=== PATIENT | male | born 1960 | race Caucasian/White ===

== ENCOUNTER → 2022-01-08 10:51 | Outpatient (BNVA) | payer MEDICARE, SELFPAY | PROVIDERS: PCP Family Medicine; Visit Provider Internal Medicine Cardiovascular Disease | DX: I44.1 Atrioventricular block, second degree (principal); R00.0 Tachycardia, unspecified | CPT/HCPCS: 93270 ==

== ENCOUNTER 2024-05-27 22:52 | Emergency (ER) | payer MEDICARE, SELFPAY ==
[2024-05-27 22:53] VITALS: BP 138/80; PULSE 121; RESP 20; TEMP 36.6; O2SAT 96
[2024-05-27 23:01] VITALS: BP 138/80; PULSE 123; RESP 20; O2SAT 95
--- NOTE | 2024-05-27 23:03 | XRR_ITS ---
PROCEDURE INFORMATION: Exam: XR Chest Exam date and time: 05/27/2024 11:05 PM Age: 63 years old Clinical indication: Injury or trauma; Blunt trauma (contusions or hematomas); Patient HX: EMS arrival for syncopal episode with fall; Additional info: Syncope fall TECHNIQUE: Imaging protocol: Radiologic exam of the chest. Views: 1 view. COMPARISON: No relevant prior studies available. FINDINGS: Lungs: Unremarkable. No consolidation. Pleural spaces: Unremarkable. No pleural effusion. No pneumothorax. Heart/Mediastinum: Unremarkable. No cardiomegaly. Bones/joints: Unremarkable. XR/XR chest 1V portable [id number] IMPRESSION: No acute findings.
--- NOTE | 2024-05-27 23:03 | XRR_ITS ---
PROCEDURE INFORMATION: Exam: XR Left Hip Exam date and time: 05/27/2024 11:05 PM Age: 63 years old Clinical indication: Injury or trauma; Blunt trauma (contusions or hematomas); Patient HX: EMS arrival for fall at home. C/O left hip pain; Additional info: Fallpain TECHNIQUE: Imaging protocol: Radiologic exam of the left hip. Views: 2 or 3 views hip with pelvis when performed. COMPARISON: No relevant prior studies available. FINDINGS: Bones/joints: Acute comminuted intertrochanteric left femur fracture. No dislocation. The pelvic bones appear grossly intact. Moderately advanced degenerative changes of bilateral hips. Degenerative changes of the lower lumbar spine. Soft tissues: Unremarkable. XR/XR hip LT 2-3V wo/w pel* [id number] IMPRESSION: Acute comminuted intertrochanteric left femur fracture.
--- NOTE | 2024-05-27 23:03 | ECG_ITS ---
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 Measurements Intervals [place] Rate: 121 P: 0 LA: 0 QRS: -50 QRSD: 100 T: 72 QT: 309 QTc: 440 Interpretive Statements ATRIAL TACHYCARDIA WITH RAPID VENTRICULAR RESPONSE PATTERN CONSISTENT WITH PULMONARY DISEASE LEFT ANTERIOR FASCICULAR BLOCK [QRS AXIS <= -45, QR IN I, RS IN II] Compared to ECG 12/27/2014 22:18:59 Left anterior fascicular block now present Sinus rhythm no longer present First degree AV block no longer present Left-axis deviation no longer present Electronically Signed On 05-28-2024 18:45:14 CDT by Heraclio Phillips M.D. [id number]
--- NOTE | 2024-05-27 23:04 | ED_ITS ---
HPI - Fall 2 General: Chief Complaint: Fall Stated Complaint: FALL Time Seen by Provider: 05/27/24 23:00 History of Present Illness: Patient brought in by EMS with complaints of syncope and fall. Patient said he stood up to fast passed out and fell and hurt his left hip. Patient said he is all back to normal now and has no other complaints other than left hip pain. Related Data Home Medications Medication Instructions Recorded Confirmed aspirin 81 mg chewable tablet 81 mg PO DAILY 09/13/20 03/16/21 cholecalciferol (vitamin D3) 125 125 mcg PO DAILY 09/13/20 03/16/21 mcg (5,000 unit) capsule levothyroxine 150 mcg tablet 150 mcg PO DAILY 09/13/20 03/16/21 (Synthroid) metformin 1,000 mg tablet 1,000 mg PO BID 09/13/20 03/16/21 olanzapine 20 mg tablet (Zyprexa) 20 mg PO DAILY 09/13/20 03/16/21 venlafaxine 75 mg capsule,extended 225 mg PO DAILY 09/13/20 03/16/21 release 24 hr (Effexor XR) Previous Rx's Medication Instructions Recorded Diabetic shoes #1 ea 09/13/20 Allergies Allergy/AdvReac Type Severity Reaction Status Date / Time No Known Allergies Allergy Verified 03/12/21 13:17 Review of Systems 2 General: Reports: 10 or more systems reviewed and unremarkable except in HPI and below PFSH ED 2 PFSH: Medical History Type 2 diabetes mellitus Hypothyroidism Tachycardia Anxiety Social History Smoking and tobacco/nicotine status: never used tobacco/nicotine Alcohol intake: never Substance/Drug Use: never Current occupational status: retired Physical Exam 2 Const: COMMON NORMALS: no acute distress, average body habitus, patient oriented x3, no limitations, healthy appearing, alert and well nourished HENMT: COMMON NORMALS: normocephalic, atraumatic, hearing grossly normal bilaterally, external ears normal, Normal external nose present and moist oral mucous membranes HEAD & SCALP: normocephalic and atraumatic NOSE: Normal external nose present EXTERNAL EAR: Yes external ears normal Neck/C-Spine: COMMON NORMALS: full ROM, no lymphadenopathy, supple, no meningeal signs, no JVD and Thyroid normal THYROID: Thyroid normal Chest: COMMONS NORMALS: normal inspection of the chest and normal palpation of entire chest wall Resp: COMMON NORMALS: normal respiratory effort, No retractions, No use of accessory muscles and clear to auscultation bilaterally AUSCULTATION: clear to auscultation bilaterally Cardio: COMMON NORMALS: no JVD, regular rate, regular rhythm, S1 normal heart sound present, S2 normal heart sound present, No gallops present (Cardio), No clicks present (Cardio), No murmurs present (Cardio) and No rub (Cardio) R ATE: regular rate RHYTHM: regular rhythm HEART SOUNDS: S1 normal heart sound present and S2 normal heart sound present GI: COMMON NORMALS: Normal to inspection, nondistended, normoactive bowel sounds present, Soft to palpation, non-tender, No hepatosplenomegaly present and no masses PALPATION: Yes Soft to palpation and Yes No hepatosplenomegaly present Extremity: NARRATIVE EXTREMITY EXAM: Tenderness with palpation over the left hip region no obvious crepitus deformity noted Neuro: COMMON NORMALS: patient oriented x3 SENSORIUM/ORIENTATION: Yes alert MENINGEAL SIGNS: Yes no meningeal signs Course 2 Vital Signs: Vital signs: Vital Signs Temperature 97.9 F 05/27/24 22:53 Pulse Rate 124 H 05/28/24 02:23 Respiratory Rate 19 H 05/28/24 02:23 Blood Pressure 113/90 05/28/24 02:23 Pulse Oximetry 94 05/28/24 02:23 Oxygen Delivery Me thod Room Air 05/28/24 02:23 MDM - Fall Medical Decision Making X-rays obtained which showed acute comminuted intertrochanteric left femur fracture, chest x-ray was negative, patient's pulse was 125-130 beats a minute upon arrival EKG showed atrial flutter RVR patient was started on a Cardizem drip after given a 10 mg Cardizem bolus, he was titrated up. Lab work was obtained which revealed a white count of 24,000 BUN/creatinine of 33 and 1.6, glucose of 422, patient was given 10 units of IV insulin and 1 L normal saline which decreases glucose down to 336, troponin baseline was 13 with a 2-hour of 10, urinalysis was negative other than 3+ glucose, urine drug screen was negative, patient's family wanted him transferred to [facility] in [place] for continuity of care. Dr. Jacobson hospitalist was consulted who agreed to take the patient in transfer Medical Records I reviewed the patient's medical records. Lab Data 05/27/24 23:21 05/27/24 23:21 Radiology Impressions Chest X-Ray 05/27/24 23:03 IMPRESSION: No acute findings. Hip/Pelvis X-Ray 05/27/24 23:03 IMPRESSION: Acute comminuted intertrochanteric left femur fracture. Laboratory Results WBC 24.74 10^3/uL (3.29-11.43) H 05/27/24 23:21 RBC 5.66 10^6/uL (3.85-5.65) H 05/27/24 23:21 Hgb 17.70 g/dL (11.27-16.99) H 05/27/24 23:21 Hct 51.7 % (37-53) 05/27/24 23:21 MCV 91.3 fl (82-101) 05/27/24 23:21 MCH 31.3 pg (27-33) 05/27/24 23:21 MCHC 34.2 g/dL (30-55) 05/27/24 23:21 RDW 14.0 % (12.1-15.1) 05/27/24 23:21 Plt Count 298 10^3/cmm (157-399) 05/27/24 23:21 MPV 11.9 fL (7.4-10.4) H 05/27/24 23:21 Neut % (Auto) 86.9 % 05/27/24 23:21 Lymph % (Auto) 5.2 % 05/27/24 23:21 [place] % (Auto) 6.6 % 05/27/24 23:21 Eos % (Auto) 0.2 % 05/27/24 23:21 Baso % (Auto) 0.5 % 05/27/24 23:21 Neut # (Auto) 21.47 10^3/uL (1.8-7.7) H 05/27/24 23:21 Lymph # (Auto) 1.3 10^3/uL (0.8-4.8) 05/27/24 23:21 [place] # (Auto) 1.6 10^3/uL (0.2-0.9) H 05/27/24 23:21 Eos # (Auto) 0.1 10^3/uL (0.0-0.8) 05/27/24 23:21 Baso # (Auto) 0.1 10^3/uL (0.0-0.1) 05/27/24 23:21 Nucleated RBC % (auto) 0 % 05/27/24 23:21 Nucleated RBCs # 0.0 /100WBC 05/27/24 23:21 PT 13.80 SECONDS (12.1-14.9) 05/27/24 23:21 INR 1.02 (0.8-1.2) 05/27/24 23:21 Specimen Type Arterial 05/28/24 00:30 ABG pH 7.54 (7.35-7.45) H 05/28/24 00:30 ABG pCO2 15.2 mmHg (35-45) L* 05/28/24 00:30 ABG pO2 139.0 mmHg (80.0-100.0) H 05/28/24 00:30 ABG HCO3 13.0 mmol/L (22-26) L 05/28/24 00:30 ABG O2 Saturation > 100.0 05/28/24 00:30 ABG Base Excess -5.8 mmol/L (-2.0-2.0) L 05/28/24 00:30 Sarmad Test Pos 05/28/24 00:30 A-a O2 Gradient 5.0 mmHg (5-10) 05/28/24 00:30 Hematocrit 49.9 % (42-52) 05/28/24 00:30 Hgb O2 Saturation 99.2 % (95-100) 05/28/24 00:30 Carboxyhemoglobin 1.3 %THgb (0.4-20.1) 05/28/24 00:30 Methemoglobin 0.0 % (0.4-1.5) L 05/28/24 00:30 Total Hemoglobin 16.3 g/dL (14-18) 05/28/24 00:30 Sodium 136.0 mmol/L (131-143) 05/28/24 00:30 Potassium 5.1 mmol/L (3.5-5.0) H 05/28/24 00:30 Glucose 380.0 mg/dL (70-115) H 05/28/24 00:30 Ionized Calcium 1.3 mmol/L (1.1-1.4) 05/28/24 00:30 Tail Sawyer ID Anonymous 05/28/24 00:30 Sodium 133 mmol/L (136-145) L 05/27/24 23:21 Potassium 5.1 mmol/L (3.5-5.1) 05/27/24 23:21 Chloride 96 mmol/L (98-107) L 05/27/24 23:21 Carbon Dioxide 17 mmol/L (22-29) L 05/27/24 23:21 Anion Gap 25.1 (5-19) H 05/27/24 23:21 BUN 33 mg/dL (8-23) H 05/27/24 23:21 Creatinine 1.6 mg/dL (0.7-1.2) H 05/27/24 23:21 GFR Calculation 43.9 mL/min (90-130) L 05/27/24 23:21 Glucose 422 mg/dL (65-115) H 05/27/24 23:21 POC Glucose 336 mg/dL (70-110) H 05/28/24 01:56 Calculated Osmolality 301 mOsm/kg (285-295) H 05/27/24 23:21 Lactic Acid 3.0 mmol/L (0.5-2.2) H 05/27/24 23:21 Calcium 9.8 mg/dL (8.5-10.5) 05/27/24 23:21 Phosphorus 3.2 mg/dL (2.5-4.5) 05/27/24 23:21 Magnesium 1.9 mg/dL (1.7-2.3) 05/27/24 23:21 Total Bilirubin 0.5 mg/dL (0.15-1.2) 05/27/24 23:21 AST 26 U/L (0-40) 05/27/24 23:21 ALT 23 U/L (0-41) 05/27/24 23:21 Alkaline Phosphatase 98 U/L (40-130) 05/27/24 23:21 Troponin T Baseline 13 ng/L (0-15) 05/27/24 23:21 Troponin T 120 Minute 10.04 ng/L (0-15) 05/28/24 01:17 Delta Troponin T -2.96 ABS# (0-10) L 05/28/24 01:17 Total Protein 6.6 g/dL (6.6-8.7) 05/27/24 23:21 Albumin 4.2 g/dL (3.5-5.2) 05/27/24 23:21 Globulin 2.4 g/dL (1.3-4.6) 05/27/24 23:21 Procalcitonin 0.06 ng/mL (0-0.5) 05/27/24 23:21 TSH 3.49 uIU/mL (0.27-4.20) 05/27/24 23:21 Urine Color Yellow (Yellow) 05/27/24 23:53 Urine Appearance Cloudy (CLEAR) A 05/27/24 23:53 Urine pH 5.5 (5-7) 05/27/24 23:53 Ur Specific [place] 1.028 (1.005-1.030) 05/27/24 23:53 Urine Protein Trace (Negative) A 05/27/24 23:53 Urine Glucose (UA) 3+ (Normal) H 05/27/24 23:53 Urine Ketones Trace (Negative) 05/27/24 23:53 Urine Blood Negative (Negative) 05/27/24 23:53 Urine Nitrate Negative (Negative) 05/27/24 23:53 Urine Bilirubin Negative (Negative) 05/27/24 23:53 Urine Urobilinogen 1.0 mg/dL (Negative) 05/27/24 23:53 Ur Leukocyte Esterase Negative (Negative) 05/27/24 23:53 Urine RBC 0-2 /hpf (0-2) 05/27/24 23:53 Urine WBC 0-5 /hpf (0-5) 05/27/24 23:53 Ur Squamous Epith Cells 0-5 /hpf (0-5) 05/27/24 23:53 Amorphous Sediment Not Reportable 05/27/24 23:53 Urine Bacteria None seen /hpf (NONE) 05/27/24 23:53 Hyaline Casts 76.53 /lpf 05/27/24 23:53 Urine Opiates Screen Negative ng/mL (Negative) 05/27/24 23:53 Ur Barbiturates Screen Negative ng/mL (Negative) 05/27/24 23:53 Ur Phencyclidine Scrn Negative ng/mL (Negative) 05/27/24 23:53 Ur Amphetamines Screen Negative ng/mL (Negative) 05/27/24 23:53 U Benzodiazepines Scrn Negative ng/mL (Negative) 05/27/24 23:53 Urine Cocaine Screen Negative ng/mL (Negative) 05/27/24 23:53 U Marijuana (THC) Screen Negative ng/mL (Negative) 05/27/24 23:53 Serum Ketones Negative (Negative) 05/27/24 23:21 All radiology interpretation(s) finalized by discharge Discharge Plan Discharge Patient Disposition: Xfer Short-Term Hosp Clinical Impression: Closed intertrochanteric fracture of left hip, Atrial flutter with rapid ventricular response, Leukocytosis, Hyperglycemia due to diabetes mellitus Condition: Stable Prescriptions: No Action venlafaxine [Effexor XR] 75 mg capsule,extended release 24hr 225 mg PO DAILY olanzapine [Zyprexa] 20 mg tablet 20 mg PO DAILY metformin 1,000 mg tablet 1,000 mg PO BID levothyroxine [Synthroid] 150 mcg tablet 150 mcg PO DAILY cholecalciferol (vitamin D3) 125 mcg (5,000 unit) capsule 125 mcg PO DAILY aspirin 81 mg tablet,chewable 81 mg PO DAILY (DME) Diabetic shoes See Rx Instructions .ROUTE .MEDSUPPLY Qty: 1 0RF Rx Instructions: As directed, with 3 pairs of inserts Referrals: Shree Wesley MD [Primary Care Provider] - Coding Level of Care Code ED Coater [employer] for Anshul Bourgeois
[2024-05-27 23:26] LABS: Basophils # 0.1 10^3/uL (0.0-0.1); Basophils % 0.5 %; Eosinophils # 0.1 10^3/uL (0.0-0.8); Eosinophils % 0.2 %; Hematocrit 51.7 % (37-53); Lymphocytes # 1.3 10^3/uL (0.8-4.8); Lymphocytes % 5.2 %; Mean Corpuscular HGB Conc 34.2 g/dL (30-55); Mean Corpuscular Hemoglobin 31.3 pg (27-33); Mean Corpuscular Volume 91.3 fl (82-101); Mean Platelet Volume 11.9 fL (7.4-10.4); Monocytes # 1.6 10^3/uL (0.2-0.9); Monocytes % 6.6 %; Neutrophils # 21.47 10^3/uL (1.8-7.7); Neutrophils % 86.9 %; Nucleated Red Blood Cells % 0 %; Platelet Count 298 10^3/cmm (157-399); Red Blood Count 5.66 10^6/uL (3.85-5.65); White Blood Count 24.74 10^3/uL (3.29-11.43)
[2024-05-27] MEDS: sodium chloride 0.9% 1,000 ML 999 ML IV (23:37)
[2024-05-27] MEDS: dilTIAZem 5 mg/mL SDV 5 mL 10 MG IVP (23:37)
[2024-05-27 23:43] VITALS: BP 138/80; PULSE 125; RESP 18; O2SAT 97
[2024-05-27 23:43] LABS: INR 1.02 (0.8-1.2)
--- NOTE | 2024-05-27 23:47 | ECG_ITS ---
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 Measurements Intervals [place] Rate: 121 P: 0 PA: 0 QRS: -49 QRSD: 98 T: 72 QT: 306 QTc: 436 Interpretive Statements ATRIAL TACHYCARDIA WITH RAPID VENTRICULAR RESPONSE PATTERN CONSISTENT WITH PULMONARY DISEASE LEFT ANTERIOR FASCICULAR BLOCK [QRS AXIS <= -45, QR IN I, RS IN II] INFERIOR MYOCARDIAL INFARCTION , OF INDETERMINATE AGE [40+ ms Q WAVE AND/OR ST/T ABNORMALITY IN II/aVF] Compared to ECG 05/27/2024 23:16:30 Myocardial infarct finding now present Electronically Signed On 05-28-2024 18:45:33 CDT by Heraclio Phillips M.D. [email or web address]
[2024-05-27 23:50] LABS: Troponin(5th) Baseline 13 ng/L (0-15)
[2024-05-27 23:56] LABS: Procalcitonin 0.06 ng/mL (0-0.5)
[2024-05-27 23:59] LABS: Charge for UA Resulting for Rev
[2024-05-28] VITALS (7 sets, daily range): BP systolic 112–121; BP diastolic 75–90; PULSE 122–129; RESP 17–20; O2SAT 92–98
[2024-05-28 00:03] LABS: Bilirubin Urine Negative (Negative); Blood Urine Negative (Negative); Glucose Urine UA 3+ (Normal); Ketones Urine Trace (Negative); Leukocyte Esterase Urine Negative (Negative); Nitrate Urine Negative (Negative); Protein Urine Trace (Negative); Specific Gravity, Urine 1.028 (1.005-1.030); Urine Appearance Cloudy (CLEAR); Urine Color Yellow (Yellow); pH Urine 5.5 (5-7)
[2024-05-28 00:08] LABS: Bacteria Urine None Seen /hpf; Hyaline Casts Urine 76.53 /lpf; RBC Urine 0-2 /hpf (0-2); Squamous Epithelial Cell Urine 0-5 /hpf (0-5); WBC Urine 0-5 /hpf (0-5)
[2024-05-28 00:09] LABS: Alanine Aminotransferase 23 U/L (0-41); Albumin Level 4.2 g/dL (3.5-5.2); Alkaline Phosphatase 98 U/L (40-130); Anion Gap 25.1 (5-19); Aspartate Amino Transferase 26 U/L (0-40); Blood Urea Nitrogen 33 mg/dL (8-23); Calcium 9.8 mg/dL (8.5-10.5); Carbon Dioxide 17 mmol/L (22-29); Chloride 96 mmol/L (98-107); Globulin 2.4 g/dL (1.3-4.6); Glomerular Filtration Rate 43.9 mL/min (90-130); Glucose 422 mg/dL (65-115); Magnesium 1.9 mg/dL (1.7-2.3); Osmolality Calculated 301 mOsm/kg (285-295); Potassium 5.1 mmol/L (3.5-5.1); Sodium 133 mmol/L (136-145); Thyroid Stimulating Hormone 3.49 uIU/mL (0.27-4.20); Total Bilirubin 0.5 mg/dL (0.15-1.2); Total Protein 6.6 g/dL (6.6-8.7)
[2024-05-28 00:09] LABS: Amphetamines Screen Urine Negative (Negative); Barbiturates Screen Urine Negative (Negative); Benzodiazepines Screen Urine Negative (Negative); Cocaine Screen Urine Negative (Negative); Opiate Screen Urine Negative (Negative); PCP Screen Urine Negative (Negative); THC Screen Urine Negative (Negative)
[2024-05-28 00:19] LABS: UA Slide Review UA Slide Review Perf
[2024-05-28 00:27] LABS: Ketone (Acetest) Serum Negative (Negative)
[2024-05-28] MEDS: insulin regular-human 100 units/1 mL 10 UNIT IVP (00:30)
[2024-05-28 00:33] LABS: Phosphorus 3.2 mg/dL (2.5-4.5)
[2024-05-28 00:37] LABS: ABG PH Result 7.54 (7.35-7.45); Arterial Blood Gas Hematocrit 49.9 % (42-52); Base Excess ABG -5.8 mmol/L (-2.0-2.0); Blood Gas Allen Test Pos; Blood Gas Sample Type Arterial; Carboxyhemoglobin 1.3 %THgb (0.4-20.1); HGB O2 Sat 99.2 % (95-100); Ionized Calcium Level - ABG 1.3 mmol/L (1.1-1.4); Oxygen Saturation ABG > 100.0; Potassium Level - ABG 5.1 mmol/L (3.5-5.0); Total Hemoglobin 16.3 g/dL (14-18)
[2024-05-28 00:42] LABS: ABG PCO2 15.2 mmHg (35-45)
[2024-05-28] MEDS: dilTIAZem 100 MG in sodium chloride 0.9% (add-van) 100 ML IV (00:43)
--- NOTE | 2024-05-28 01:18 | ECG_ITS ---
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 Measurements Intervals [place] Rate: 126 P: 230 IA: 124 QRS: -46 QRSD: 106 T: 70 QT: 302 QTc: 438 Interpretive Statements ECTOPIC ATRIAL TACHYCARDIA PATTERN CONSISTENT WITH PULMONARY DISEASE LEFT ANTERIOR FASCICULAR BLOCK [QRS AXIS <= -45, QR IN I, RS IN II] NONSPECIFIC T-WAVE ABNORMALITY Compared to ECG 05/27/2024 23:47:47 T-wave abnormality now present Atrial flutter no longer present Myocardial infarct finding no longer present Electronically Signed On 05-28-2024 18:51:27 CDT by Heraclio Phillips M.D. [id number]
[2024-05-28 01:19] LABS: Reflex Lactate Order REFLEX LACTIC ORDERD
[2024-05-28 01:39] LABS: Troponin 5 2HR 10.04 ng/L (0-15)
[2024-05-28 01:41] LABS: Troponin 5 2HR Delta -2.96 ABS# (0-10)
[2024-05-28 02:00] LABS: Glucose Point of Care 336 mg/dL (70-110)
[2024-05-28] MEDS: ondansetron 2 mg/ML SDV 2 mL 4 MG IVP (02:20)
[2024-05-28] MEDS: morphine 4 mg/mL SDV 1 mL IVP (02:22)
[2024-05-28] MEDS: LORazepam 2 mg/mL INJ 1 mL IVP (03:34)
[2024-05-28 16:14] LABS: Blood Gas Operator Identificat BUSJA
== END 2024-05-28 04:00 | disposition short-term general hospital (02) ==
PROVIDERS: Emergency Provider Emergency Medicine; PCP Family Medicine
DX: S72.142A Displaced intertrochanteric fracture of left femur, initial encounter for closed fracture (principal); I48.92 Unspecified atrial flutter; D72.829 Elevated white blood cell count, unspecified; E11.65 Type 2 diabetes mellitus with hyperglycemia; Z79.82 Long term (current) use of aspirin; Z79.84 Long term (current) use of oral hypoglycemic drugs; W18.39XA Other fall on same level, initial encounter
CPT/HCPCS: 36415; 36416; 36600; 51702; 71045; 73502; 80051; 80053; 80306; 81003; 81015; 82009; 82330; 82805; 82962; 83605; 83735; 84100; 84145; 84443; 84484; 85025; 85610; 87040; 93005; 96365; 96366; 96375; 99285; J1815; J2060; J2270; J2405; J3490; J7030

== ENCOUNTER 2024-06-12 13:00 | Emergency (ER) | payer MEDICARE, SELFPAY ==
[2024-06-12 13:01] VITALS: BP 138/81; PULSE 99; TEMP 36.9; O2SAT 99
--- NOTE | 2024-06-12 13:05 | XRR_ITS ---
PROCEDURE INFORMATION: Exam: XR Left Hip Exam date and time: 06/12/2024 1:33 PM Age: 63 years old Clinical indication: Hip pain; Left hip; Prior surgery; Surgery date: 6+ months; Patient HX: Lt lower ext pain; Post op lt long tfn x 3 weeks ago; Non weight bearing TECHNIQUE: Imaging protocol: Radiologic exam of the left hip. Views: 2 or 3 views hip with pelvis when performed. COMPARISON: CR (PELVIS, ) 05/27/2024 11:05 PM FINDINGS: Bones/joints: Compression screws stabilizing comminuted proximal femoral fracture. Bony structures and near anatomic alignment. Soft tissues: Unremarkable. XR/XR hip LT 2-3V wo/w pel* [id number] IMPRESSION: No acute findings.
--- NOTE | 2024-06-12 13:14 | ED_ITS ---
HPI - Fall General: Chief Complaint: Extremity Injury, Lower Stated Complaint: left hip pain Time Seen by Provider: 06/12/24 13:01 Source: patient and EMS Mode of arrival: EMS Limitations: no limitations History of Present Illness: 63-year-old male who had recent hip surg jarrod a few weeks ago at [facility] for a left hip fracture he is currently at [facility] long term for rehab. Patient is nonweightbearing he has been doing physical therapy states has had some increased left hip pain with that physical therapy rates his pain a 5 out of 10 he denies any new injuries denies any fevers states pain is worse movement improved rest Associated symptoms-after fall: Denies abdominal pain, chest pain, headache(s) or neck pain Related Data Home Medications Medication Instructions Recorded Confirmed aspirin 81 mg chewable tablet 81 mg PO DAILY 09/13/20 03/16/21 cholecalciferol (vitamin D3) 125 125 mcg PO DAILY 09/13/20 03/16/21 mcg (5,000 unit) capsule levothyroxine 150 mcg tablet 150 mcg PO DAILY 09/13/20 03/16/21 (Synthroid) metformin 1,000 mg tablet 1,000 mg PO BID 09/13/20 03/16/21 olanzapine 20 mg tablet (Zyprexa) 20 mg PO DAILY 09/13/20 03/16/21 venlafaxine 75 mg capsule,extended 225 mg PO DAILY 09/13/20 03/16/21 release 24 hr (Effexor XR) Previous Rx's Medication Instructions Recorded Diabetic shoes #1 ea 09/13/20 Allergies Allergy/AdvReac Type Severity Reaction Status Date / Time No Known Allergies Allergy Verified 06/12/24 13:19 Review of Systems Const: Denies: fever(s), chills, body aches or change in appetite ENMT: Denies: throat pain or dental pain Card: Denies: chest pain Resp: Denies: dyspnea GI: Denies: abdominal pain, nausea, vomiting or diarrhea Musc: Reports: extremity pain; Denies: neck pain or back pain Skin/Breast: Denies: rash Neuro: Denies: headache(s) PFSH ED PFSH: Medical History Type 2 diabetes mellitus Hypothyroidism Tachycardia Anxiety Social History Smoking and tobacco/nicotine status: never used tobacco/nicotine Alcohol intake: never Substance/Drug Use: never Current occupational status: retired Physical Exam Const: COMMON NORMALS: no acute distress, patient oriented x3 and healthy appearing HENMT: COMMON NORMALS: normocephalic and atraumatic HEAD & SCALP: normocephalic and atraumatic Neck/C-Spine: COMMON NORMALS: full ROM and supple Chest: COMMONS NORMALS: normal inspection of the chest Resp: COMMON NORMALS: normal respiratory effort Cardio: COMMON NORMALS: regular rate, regular rhythm and No murmurs present (Cardio) RATE: regular rate RHYTHM: regular rhythm Extremity: NARRATIVE EXTREMITY EXAM: Some pain with range of motion of left hip no obvious deformities incisions are clean dry intact no swelling the left lower leg Neuro: COMMON NORMALS: patient oriented x3, moves all extremities and no focal motor deficits Psych: COMMON NORMALS: mental status grossly normal, Normal thought process present and cooperative THOUGHT PROCESS: Normal thought process present Skin: COMMON NORMALS: no rashes or lesions noted and no wounds GENERAL SKIN EXAM: no rashes or lesions noted Course Vital Signs: Vital signs: Vital Signs Temperature 98.4 F 06/12/24 13:01 Pulse Rate 89 06/12/24 14:11 Respiratory Rate 18 06/12/24 13:28 Blood Pressure 140/82 06/12/24 14:11 Pulse Oximetry 94 06/12/24 14:11 Oxygen Delivery Me thod Room Air 06/12/24 14:11 MDM - Fall Medical Decision Making Patient presents here with left hip pain incisions clean dry and intact x-ray showed no abnormalities here he has no sign of joint infection likely pain from his PT he is stable for discharge follow-up with surgeon return if worsening Medical Records I reviewed the patient's medical records. XR interpretation done by ED provider, pending radiology final review ED provider radiology interpretation(s): X-ray left hip and femur no acute abnormality noted Discharge Plan Discharge Patient Disposition: Home Clinical Impression: Pain in left hip Condition: Stable Prescriptions: No Action venlafaxine [Effexor XR] 75 mg capsule,extended release 24hr 225 mg PO DAILY olanzapine [Zyprexa] 20 mg tablet 20 mg PO DAILY metformin 1,000 mg tablet 1,000 mg PO BID levothyroxine [Synthroid] 150 mcg tablet 150 mcg PO DAILY cholecalciferol (vitamin D3) 125 mcg (5,000 unit) capsule 125 mcg PO DAILY aspirin 81 mg tablet,chewable 81 mg PO DAILY (DME) Diabetic shoes See Rx Instructions .ROUTE .MEDSUPPLY Qty: 1 0RF Rx Instructions: As directed, with 3 pairs of inserts Discharge Orders: Discharge ED (Routine); Ordered 06/12/24 Ordered By: Caro Turner Referrals: Shree Wesley MD [Primary Care Provider] - Discharge Diet: Advance as tolerated Discharge Activity: Resume usual activity Patient Instructions: Opioid Safety, Post Operative Pain Coding Level of Care Code 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
[2024-06-12 13:28] VITALS: RESP 18
[2024-06-12] MEDS: morphine 4 mg/mL SDV 1 mL IM (13:28)
--- NOTE | 2024-06-12 13:40 | XRR_ITS ---
PROCEDURE INFORMATION: Exam: XR Left Femur Exam date and time: 06/12/2024 1:42 PM Age: 63 years old Clinical indication: Thigh; Left; Prior surgery; Surgery date: 6+ months; Patient HX: Lt lower ext pain; Post op lt long tfn x 3 weeks ago; Non weight bearing TECHNIQUE: Imaging protocol: Radiologic exam of the left femur. Views: 2 views. COMPARISON: CR XR hip LT 2-3V wo/w pel* [id number] 06/12/2024 1:33 PM FINDINGS: Bones/joints: Compression screw left proximal femur. Long-stem IM elisa. Comminuted intertrochanteric fracture without significant displacement. Soft tissues: Unremarkable. XR/XR femur LT min 2V* [id number] IMPRESSION: Comminuted intertrochanteric fracture without significant displacement, status post ORIF.
[2024-06-12 14:11] VITALS: BP 140/82; PULSE 89; O2SAT 94
[2024-06-12] MEDS: diazePAM 5 mg Tablet PO (15:00)
[2024-06-12 16:29] VITALS: BP 147/88; PULSE 97; O2SAT 97
[2024-06-12 20:02] VITALS: BP 161/110; PULSE 101; O2SAT 98
== END 2024-06-12 20:04 | disposition home or self-care (01) ==
PROVIDERS: Emergency Provider Emergency Medicine; PCP Family Medicine
DX: M25.552 Pain in left hip (principal); Z79.82 Long term (current) use of aspirin; E11.9 Type 2 diabetes mellitus without complications
CPT/HCPCS: 73502; 73552; 96372; 99284; J2270

== ENCOUNTER 2025-09-04 06:30 | Outpatient (RCR) | payer MEDICARE, BC, SELFPAY | END 2025-10-04 23:59 | disposition home or self-care (01) | LOC: SPT 06:30 | PROVIDERS: Visit Provider Orthopaedic Surgery | DX: M16.12 Unilateral primary osteoarthritis, left hip (principal) | CPT/HCPCS: 97110; 97162 ==